=== PATIENT | female | born 1945 | race Caucasian/White ===

== ENCOUNTER → 2016-03-03 | Outpatient (CLI) | payer MEDICARE ==
[2015-08-01 13:58] VITALS: BP 171/98
[~2016-03-03] MED LIST: AMLO5TAB2 PO; BUPR150T15 PO; CARB200T PO; ERYT1OIN6 EACHEYE; ESTR0.3T PO; FLUT16SP2 NS; LEVO50TA PO; OFLO5DRO OS; PARO10TA24 PO
--- NOTE | 2016-03-04 17:27 | EEG ---
DATE OF SERVICE: 03/03/2016 EEG NUMBER: [id number], performed on 03/03/2016. OBJECTIVE: The patient is a 70-year-old female with history of conversion disorder and possible seizures. DESCRIPTION: This is a digital study. Electrodes are placed according to the international 10-20 system. Bipolar and referential montages are available. Activation procedures typically include hyperventilation and intermittent photic stimulation. INTERPRETATION: The waking background consists of 9-10 Hz, 50-100 microvolt activity, symmetrically distributed over parietooccipital regions, and reactive to eye opening. Hyperventilation and intermittent photic stimulation are noncontributory. Stage 2 sleep is achieved with normal electroencephalogram patterns. IMPRESSION: This electroencephalogram with the patient awake and asleep is within normal limits. There is no focal, paroxysmal, or epileptiform activity. Thank you for letting us help with the patient's care. MORRIS MCCALLUM MD DR: ROSLYN/esthela JOB#: [id number] / [id number] DEEPA Flores MD
== END | disposition home or self-care (01) ==
LOC: RT 07:52
PROVIDERS: ATTEND Psychiatry & Neurology Neurology with Special Qualifications in Child Neurology
DX: F44.4 Conversion disorder with motor symptom or deficit (principal); R56.9 Unspecified convulsions
CPT/HCPCS: 95816

== ENCOUNTER 2016-12-07 19:06 | Emergency (ER) | payer OTHER, MEDICARE ==
[~2016-12-07] VITALS: Ht 142.2 cm; Wt 46.7 kg
[~2016-12-07 19:06] MED LIST changes: -PARO10TA24 PO; +PARO10TA57 PO
[2016-12-07 19:23] VITALS: BP 169/77
[2016-12-07] MEDS ORDERED: ACETAMINOPHEN/CODEINE 300/30MG TABLET. PO ONE (19:30)
--- NOTE | 2016-12-07 19:45 | PHYS DOC ---
Past Medical History Past Medical History: Anxiety, Bipolar, GERD, High Cholesterol, Hypertension, Hypothyroid, Other Additional Past Medical Histor: Osteoporosis, Concussion x 2 from falls in 2014 ,Bilat Ear Nerve Damage. 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 Alcohol Use: Sober Drug Use: None Adult General Chief Complaint Chief Complaint: MECHANICAL FALL [facility] HPI Patient is a 71 year old female who presents with facial contusion status post falling. Patient states he works at [employer], she was walking in with food in her hands when she tripped over a kids feet and fell flat on her face. Patient denies any loss of consciousness. Denies any use of aspirin or anticoagulants. She is very heard of hearing. Review of Systems Review of Systems Constitutional: Denies fever or chills [] Eyes: Denies change in visual acuity, redness, or eye pain [] HENT: facial contusion Respiratory: Denies cough or shortness of breath [] Cardiovascular: No additional information not addressed in HPI [] GI: Denies abdominal pain, nausea, vomiting, bloody stools or diarrhea [] : Denies dysuria or hematuria [] Musculoskeletal: Denies back pain or joint pain [] Integument: Denies rash or skin lesions [] Neurologic: Denies headache, focal weakness or sensory changes [] Endocrine: Denies polyuria or polydipsia [] Current Medications Current Medications Current Medications Medications (Trade) Dose Ordered Sig/Castro Start Time Stop Time Status Last Admin Dose Admin Acetaminophen/ Codeine Phosphate (Tylenol #3) 1 tab 1X ONCE 12/07/16 19:30 12/07/16 19:31 DC 12/07/16 20:21 1 TAB Allergies Allergies Allergies Coded Allergies Type Severity Reaction Last Updated Verified No Known Drug Allergies 06/29/13 No Physical Exam Physical Exam Constitutional: Well developed, well nourished, no acute distress, non-toxic appearance. [] HENT: Normocephalic, bilateral external ears normal, oropharynx moist, no oral exudates, mild swelling noted on the nasal bridge with deformity to the nose. There is a superficial laceration over the nasal bridge approximately 1 cm long. No nosebleeding. Eyes: PERRLA, EOMI, conjunctiva normal, no discharge. [] Neck: Normal range of motion, no tenderness, supple, no stridor. [] Cardiovascular:Heart rate regular rhythm, no murmur [] Lungs & Thorax: Bilateral breath sounds clear to auscultation [] Abdomen: Bowel sounds normal, soft, no tenderness, no masses, no pulsatile masses. [] Skin: Warm, dry, no erythema, no rash. [] Back: No tenderness, no CVA tenderness. [] Extremities: No tenderness, no cyanosis, no clubbing, ROM intact, no edema. [] Neurologic: Alert and oriented X 3, normal motor function, normal sensory function, no focal deficits noted. [] Psychologic: Affect normal, judgement normal, mood normal. [] Current Patient Data Vital Signs Vital Signs Date Time Temp Pulse Resp B/P (MAP) Pulse Ox O2 Delivery O2 Flow Rate FiO2 12/07/16 20:21 Room Air 12/07/16 19:23 98.1 94 20 98 98.1 EKG EKG [] Radiology/Procedures Radiology/Procedures []PROCEDURE: CT HEAD AND MAXILLOFACIAL WO CT scan of the head without contrast 12/07/2016 Clinical History: Fall with headache. Nasal laceration. Technique: Unenhanced, contiguous, 5 mm axial sections were obtained through the head. One or more of the following individualized dose reduction techniques were utilized for this study: 1. Automated exposure control. 2. Adjustment of the mA and/or kV according to patient size. 3. Use of iterative reconstruction technique. Findings: Comparison study is dated 07/19/2013. There is generalized parenchymal atrophy. Areas of decreased attenuation are seen within the periventricular and subcortical white matter of both cerebral hemispheres consistent with areas of small vessel ischemic disease. No acute parenchymal abnormality is seen. No extra-axial fluid collection is noted. No skull fracture is seen. Impression: No acute intracranial abnormality is seen. CT scan of the facial bones without contrast 12/07/2016. Uncal history: Fall with nasal laceration. TECHNIQUE: Unenhanced, contiguous, 0.625 mm axial sections were obtained through the facial bones and orbits. 3 mm reconstructed sagittal and axial and coronal images were obtained. FINDINGS: A comminuted minimally depressed fracture is seen involving the nasal bone. No additional facial bone fracture is seen. Both orbits are intact the paranasal sinuses are essentially clear. No air-fluid level is seen. IMPRESSION: Comminuted minimally depressed fracture of the nasal bone. No additional facial bone fracture is seen. Electronically signed by: Mj Morton MD (12/07/2016 8:16 PM) [facility] DICTATED and SIGNED BY: MJ MORTON MD DATE: 12/07/162011 CC: DEEPA BARTLETT MD; EMMA HERRERA APRN; NON,STAFF ~ Course & Med Decision Making Course & Med Decision Making Pertinent Labs and Imaging studies reviewed. (See chart for details) Patient is in the ED with facial contusion after falling face forward. She also had a superficial laceration over the nasal bridge that was closed with Dermabond. Tetanus is up-to-date. CT of the head was negative for any acute findings, CT of maxillary facial was noted for a comminuted mildly depressed fracture of the nasal bone. Patient was given instructions to follow-up with [facility] plastic surgeon. She was put on a give Augmentin considering this is an open fracture. She was instructed to keep the area clean and dry. Dragon Disclaimer Dragon Disclaimer This electronic medical record was generated, in whole or in part, using a voice recognition dictation system. Departure Departure Impression: Primary Impression: Fall from standing Additional Impressions: Facial contusion Laceration of nose Open fracture nasal bone Disposition: 01 HOME, SELF-CARE Condition: STABLE Referrals: DEEPA BARTLETT MD (PCP) Follow up with [facility] plastic surgery. Call them tomorrow for an appointment with Dr. Del Castillo or [facility]. The phone number is . Patient Instructions: Contusion, [id number], Fall Prevention and Home Safety , Nasal Fracture, [id number] Additional Instructions: You were seen for facial contusion after falling. Your CT of the head was negative for any acute findings, your CT of the face was noted for nasal bone fracture. We put you on antibiotics, ensure you complete them. Follow-up with a plastic surgeon at [facility] plastic surgery or any other plastic surgeon you choose to. Scripts Hydrocodone/Apap 5-325 (NORCO 5-325 TABLET) 1 Each Tablet 1 TAB PO Q4-6HRS, #15 TAB Prov: EMMA HERRERA APRN 12/07/16 Amoxicillin/Potassium Clav (AUGMENTIN 875-125 TABLET) 1 Each Tablet 1 TAB PO BID, #20 TAB Prov: MUTUNGA,EMMA GATE WATCHMAN 12/07/16 Problem Qualifiers Primary Impression: Fall from standing Encounter type: initial encounter Qualified Codes: W19.XXXA - Unspecified fall, initial encounter Additional Impressions: Facial contusion Encounter type: initial encounter Qualified Codes: S00.83XA - Contusion of other part of head, initial encounter Laceration of nose Encounter type: initial encounter Qualified Codes: S01.21XA - Laceration without foreign body of nose, initial encounter Open fracture nasal bone Encounter type: initial encounter Qualified Codes: S02.2XXB - Fracture of nasal bones, initial encounter for open fracture EMMA HERRERA GATE WATCHMAN Dec 07, 2016 19:45
--- NOTE | 2016-12-07 20:20 | RAD ---
CT scan of the head without contrast 12/07/2016 Clinical History: Fall with headache. Nasal laceration. Technique: Unenhanced, contiguous, 5 mm axial sections were obtained through the head. One or more of the following individualized dose reduction techniques were utilized for this study: 1. Automated exposure control. 2. Adjustment of the mA and/or kV according to patient size. 3. Use of iterative reconstruction technique. Findings: Comparison study is dated 07/19/2013. There is generalized parenchymal atrophy. Areas of decreased attenuation are seen within the periventricular and subcortical white matter of both cerebral hemispheres consistent with areas of small vessel ischemic disease. No acute parenchymal abnormality is seen. No extra-axial fluid collection is noted. No skull fracture is seen. Impression: No acute intracranial abnormality is seen. CT scan of the facial bones without contrast 12/07/2016. Uncal history: Fall with nasal laceration. TECHNIQUE: Unenhanced, contiguous, 0.625 mm axial sections were obtained through the facial bones and orbits. 3 mm reconstructed sagittal and axial and coronal images were obtained. FINDINGS: A comminuted minimally depressed fracture is seen involving the nasal bone. No additional facial bone fracture is seen. Both orbits are intact the paranasal sinuses are essentially clear. No air-fluid level is seen. IMPRESSION: Comminuted minimally depressed fracture of the nasal bone. No additional facial bone fracture is seen. Electronically signed by: Mj Morton MD (12/07/2016 8:16 PM) [facility]
[2016-12-07] MEDS ORDERED: HYDR-971 PO (20:28)
[2016-12-07] MEDS ORDERED: AMOX1TAB61 PO (20:28)
== END 2016-12-07 20:38 | disposition home or self-care (01) ==
LOC: ER 19:06
DX: S02.2XXB Fracture of nasal bones, initial encounter for open fracture (principal); S01.21XA Laceration without foreign body of nose, initial encounter; S00.83XA Contusion of other part of head, initial encounter; F41.9 Anxiety disorder, unspecified; F31.9 Bipolar disorder, unspecified; K21.9 Gastro-esophageal reflux disease without esophagitis; E78.00 Pure hypercholesterolemia, unspecified; I10 Essential (primary) hypertension; E03.9 Hypothyroidism, unspecified; M81.0 Age-related osteoporosis without current pathological fracture; Z98.42 Cataract extraction status, left eye; Z98.41 Cataract extraction status, right eye; W01.0XXA Fall on same level from slipping, tripping and stumbling without subsequent striking against object, initial encounter; Y93.01 Activity, walking, marching and hiking; Y92.89 Other specified places as the place of occurrence of the external cause; Y99.8 Other external cause status
CPT/HCPCS: 12011; 70450; 70486; 99284-25

== ENCOUNTER 2018-03-05 14:17 | Emergency (ER) | payer MEDICARE ==
[~2018-03-05] VITALS: Ht 139.7 cm; Wt 46.7 kg
[~2018-03-05 14:17] MED LIST changes: -AMLO5TAB2 PO; +AMLO5TAB7 PO; +AMOX1TAB61 PO; +HYDR-3164 PO
[2018-03-05 14:30] VITALS: BP 166/83
--- NOTE | 2018-03-05 14:45 | PHYS DOC ---
Past Medical History Past Medical History: Anxiety, Bipolar, GERD, High Cholesterol, Hypertension, Hypothyroid, Other Additional Past Medical Histor: Osteoporosis, Concussion x 2 from falls in 2014 ,Bilat Ear Nerve Damage. 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 Alcohol Use: Sober Drug Use: None Adult General Chief Complaint Chief Complaint: SKIN RASH/ABSCESS HPI HPI 72-year-old female presents to ER complaining she has area on her back which is tender to touch and her reported she has raised area on her back which appeared red. Patient reports she has had multiple skin cancers in the past which have been surgically removed so came to the ER for evaluation. His fever or chills. Patient reports she has recently been treated for sinus infection and is on Augmentin currently-the symptoms have improved however she does continue to have generalized fatigue. Review of Systems Review of Systems Constitutional: Denies fever or chills [] Respiratory: Denies cough or shortness of breath [] Cardiovascular: No additional information not addressed in HPI [] GI: Denies abdominal pain, nausea, vomiting, bloody stools or diarrhea [] Musculoskeletal: Denies joint pain. Reports pain lt upper back at sore site Integument: Reports tender raised sore on lt upper back Neurologic: Denies headache, focal weakness or sensory changes [] All other systems were reviewed and found to be within normal limits, except as documented in this note. Allergies Allergies Allergies Coded Allergies Type Severity Reaction Last Updated Verified No Known Drug Allergies 06/29/13 No Physical Exam Physical Exam Constitutional: Well developed, well nourished, no acute distress, non-toxic appearance. [] HENT: Normocephalic, atraumatic, bilateral external ears normal, oropharynx moist, no oral exudates, nose normal. [] Eyes: PERRLA, EOMI, conjunctiva normal, no discharge. [] Neck: Normal range of motion, no tenderness, supple, no stridor. [] Cardiovascular:Heart rate regular rhythm, no murmur [] Lungs & Thorax: Bilateral breath sounds clear to auscultation [] Abdomen: Bowel sounds normal, soft, no tenderness, no masses, no pulsatile masses. [] Skin: Warm, dry, no erythema, no rash. [] Back: No tenderness, no CVA tenderness. [] Extremities: No tenderness, no cyanosis, no clubbing, ROM intact, no edema. [] Neurologic: Alert and oriented X 3, normal motor function, normal sensory function, no focal deficits noted. [] Psychologic: Affect normal, judgement normal, mood normal. [] EKG EKG [] Radiology/Procedures Radiology/Procedures [] Course & Med Decision Making Course & Med Decision Making She was evaluated in the ER for complaints of tender raised sore on left upper back. She had mole on lt upper back on palpation was nontender-no erythema. Patient was afebrile and nontoxic in appearance. Patient is scheduled on with Dr. Quiles for removal of lt lower leg melanoma. With patient having no infectious appearance or abscess no treatment done while in the ER. Patient is going to call Dr. Quiles's office and have follow-up with his office prior to her surgery date. Patient's during exam states mole appears less red than it had at home. Patient was provided with a Band-Aid and discussed covering the area to avoid irritation. Education provided and signs and symptoms to return to ER for an discharge instructions were discussed. Dragon Disclaimer Dragon Disclaimer This electronic medical record was generated, in whole or in part, using a voice recognition dictation system. Departure Departure Impression: Primary Impression: Skin mole Disposition: 01 HOME, SELF-CARE Condition: STABLE Referrals: DEEPA BARTLETT MD (PCP) Patient Instructions: Mole-Brief Additional Instructions: Call Dr. Quiles's office and discuss your concerns- it appears to be a mole on your back with no signs of infection or an abscess. Keep area covered with bandaid to avoid irritation. JACI POON APRN Mar 05, 2018 14:45
== END 2018-03-05 15:10 | disposition home or self-care (01) ==
LOC: ER 14:17
DX: D22.9 Melanocytic nevi, unspecified (principal); R53.83 Other fatigue; K21.9 Gastro-esophageal reflux disease without esophagitis; F31.9 Bipolar disorder, unspecified; E78.00 Pure hypercholesterolemia, unspecified; E03.9 Hypothyroidism, unspecified; Z85.828 Personal history of other malignant neoplasm of skin
CPT/HCPCS: 99282

== ENCOUNTER → 2019-03-28 | Outpatient (CLI) | payer MEDICARE ==
[~2019-03-28] MED LIST changes: +AMLO5TAB10 PO; -AMLO5TAB7 PO
--- NOTE | 2019-03-28 14:05 | KCIC ---
MRI Lumbar Spine without contrast History: Lumbar radiculopathy, low back pain, bilateral hip and thigh pain since December 2018 Technique: Multiplanar, multi sequential noncontrast MR imaging was performed of the lumbar spine. Comparison: None Findings: Other than small inferior Schmorl's nodes of L4, L2, and L1, vertebral body stature is overall maintained. AP alignment is mostly maintained, negligible anterior spondylolisthesis at L4-5. There is [id number] degenerative disc disease at L2-3 and minimally at L1-2, L3-4, and L4-5. There is trace L2-3 endplate edema likely reactive/degenerative in etiology. Conus terminates at the mid to inferior aspect of L2. L1-L2: Neural foramina and spinal canal are adequate. L2-L3: There is minimal disc osteophyte complex and bulge, mild indentation upon the ventral thecal sac greater in the far left lateral recess. Spinal canal and neural foramina are overall adequate. L3-L4: There is negligible disc osteophyte complex. There is mild prominence of posterior epidural fat centrally. Spinal canal is overall adequate. Neural foramina are not significantly narrowed. L4-L5: There is minimal buckling of the ligamentum flavum. There is left posterolateral annular tear. There is negligible bulge. There is very minimal narrowing of the inferior left neural foramen by minimal disc osteophyte complex, right neural foramen overall adequate. L5-S1: Spinal canal is adequate. There is minimal disc osteophyte complex in the inferior left neural foramen contributing to mild narrowing of the left neural foramen. Right neural foramen is adequate. Impression: 1. There is no significant lumbar spinal stenosis. There is no significant lumbar neural foramina compromise, minimal narrowing on the left at L4-5 and L5-S1. There is [id number] L2-3 degenerative disc disease, minimally at other levels. There is negligible anterior spondylolisthesis at L4-5. Electronically signed by: Dago Ang MD (03/28/2019 2:03 PM) [id number]
== END | disposition home or self-care (01) ==
LOC: KCIC MRI 12:44
PROVIDERS: ATTEND Internal Medicine Rheumatology
DX: M43.16 Spondylolisthesis, lumbar region (principal); M51.16 Intervertebral disc disorders with radiculopathy, lumbar region; M47.26 Other spondylosis with radiculopathy, lumbar region; M25.78 Osteophyte, vertebrae; M48.07 Spinal stenosis, lumbosacral region
CPT/HCPCS: 72148

== ENCOUNTER → 2020-05-19 | Outpatient (CLI) | payer MEDICARE ==
[~2020-05-19] MED LIST changes: +ALPR0.254 PO; +AMLO-186 PO; -AMLO5TAB10 PO; +ATOR10TA60 PO; +BUPIVACAINE MPF 0.25% 10 ML VIAL. ONE; +CALC500T54 PO; +DULO60CA6 PO; +FOLI0.8C PO; +LACT1CAP6 PO; +LEVO100T5 PO; +METH2.5T PO; +MULT-245 PO; +PANT20TA2 PO; +PRED2.5T PO; +QUET100T4 PO; +TIOT18CA IH; +TRAM100T2 PO; +methylPREDNISolone ACETATE 40 MG/ML VIAL. ONE
--- NOTE | 2020-05-19 15:34 | PDOC1 ---
INITIAL PAIN CONSULT DATE OF SERVICE: DOS: DATE: 05/19/20 TIME: 15:25 CHIEF COMPLAINT: Chief Complaint: Neck and left upper extremity pain HISTORY OF PRESENT ILLNESS: 34-year-old female presents history of pain base the neck and left shoulder left upper extremity for about 3 weeks now increasing after she fell out of her bed onto her left shoulder and arm. Patient reports that prior to that she did have some pain in the base of the neck and shoulder was not nearly as bad now is becoming more constant described as sharp and stabbing shooting in the left upper extremity also in the posterior deltoid posterior triceps and into the forearm with some loss of strength as well secondary to the pain patient reports no significant decrease in range of motion of the left upper extremity no pain on the right side. Patient has good rotation of the neck as well without significant pain reported with extension flexion right or left lateral rotation. Patient reports the pain does awaken her up at night but not every night from sleep.. Patient is doing some stretching and strengthening on her own has had no formal physical therapy or other treatments at this time. Patient is taking tramadol as well as Tylenol prednisone has been discontinued about 3 weeks ago. Patient is using some cortisone cream to the left shoulder as well as some [id number] lidocaine patches which she does report help about 10 to 20%. Patient rates her disability rating 0-10 10 being the worst is a 10 with recreation social activity occupational activities 10 with sleeping activities and life support activities as well as family home responsibilities. Patient not had any recent diagnostic studies as well. PAST MEDICAL HISTORY: PMH: Hearing loss, COPD, hypertension, hyperlipidemia, gastroesophageal reflux, arthritis, skin cancers PREVIOUS SURGERIES: Past Surgical Hx: Abdominal hysterectomy, thyroidectomy, bilateral cataract extractions, left neck tumor extraction and lymph node removal and salivary gland extraction. CURRENT MEDICATIONS: Current Meds: Active Scripts Medications Dose Route/Sig Max Daily Dose Days Date Category Tramadol Hcl 100 Mg Tbmp.24hr 2 Tab PO PRN DAILY PRN MDD 1 Tablet(s) 30 05/19/20 Reported Calcium (Calcium Carbonate) 500 Mg Tab.chew 500 Mg PO DAILY 05/19/20 Reported Multi Vitamin Daily (Multivitamin) 1 Each Tablet 1 Tab PO DAILY 30 05/19/20 Reported Probiotic (Lactobacillus Acidophilus) 1 Each Capsule 1 Each PO DAILY 05/19/20 Reported Methotrexate (Methotrexate Sodium) 2.5 Mg Tablet 2.5 Mg PO DAILY 05/19/20 Reported Folic Acid 0.8 Mg Capsule 1 Cap PO BID 30 05/19/20 Reported Cymbalta (Duloxetine Hcl) 60 Mg Capsule.dr 1 Cap PO DAILY 05/19/20 Reported Prednisone 2.5 Mg Tablet 5 Mg PO DAILY 05/19/20 Reported Spiriva (Tiotropium [place]) 18 Mcg Cap.w.dev 1 Cap IH DAILY 05/19/20 Reported Atorvastatin Calcium 10 Mg Tablet 1 Tab PO DAILY 05/19/20 Reported Seroquel (Quetiapine Fumarate) 100 Mg Tablet 1 Tab PO QHS 05/19/20 Reported Alprazolam 0.25 Mg Tablet 1 Tab PO DAILY 05/19/20 Reported Protonix (Pantoprazole Sodium) 20 Mg Tablet.dr 1 Tab PO DAILY 05/19/20 Reported Levothyroxine Sodium 100 Mcg Tablet 1 Tab PO DAILY 05/19/20 Reported Flonase (Fluticasone Propionate) 16 Gm Bernard.susp 16 Gm NS 07/14/13 Reported Amlodipine Besylate 5 Mg Tablet 5 Mg PO DAILY 07/14/13 Reported Tegretol (Carbamazepine) 200 Mg Tablet 200 Mg PO TID 07/14/13 Reported ALLERGIES; Allergies: Coded Allergies: No Known Drug Allergies (Unverified , 06/29/13) FAMILY HISTORY: Family Hx: Lupus in the patient's sister, rheumatoid arthritis in the patient's sister, rheumatoid arthritis in patient's father SOCIAL HISTORY: Social Hx: Patient does not trevor alcohol does not smoke not use any illegal illicit or recreational drugs is lives with her spouse is locally in [facility] and reports she is still working at a [employer]. REVIEW OF SYSTEMS: ROS: Positive for those items mentioned in history of present illness, all systems ar e reviewed, otherwise negative ,and are complete full and well-documented on patient's chart. PHYSICAL EXAM: VS: Blood pressure is 143/83 pulse 84 respirations 18 temperature 98.2 F height is 4 foot 8 inches weight is 107 pounds PE: PHYSICAL EXAMINATION: GENERAL: The patient is awake, alert, oriented, appropriate, very pleasant demeanor, accompanied by her . HEENT: Shows normocephalic, atraumatic. Extraocular movements are intact and symmetrical. Oral cavity: Mucous membranes moist and pink. Dentition is intact. NECK: Shows anterior throat supple without palpable lymphadenopathy noted. Swallow reflex symmetrical. CHEST: Shows normal on inspection. Breath sounds are clear bilaterally, no ra les rhonchi wheezes auscultated. HEART: Shows S1, S2 clear. No murmurs auscultated. ABDOMEN: Soft, nontender, nondistended, obese. No palpable organomegaly is noted. No rebound or guarding demonstrated. BACK: Shows spine grossly in the midline. Normal-appearing cervical lordotic curvature. Cervical paraspinous muscles show symmetrical on inspection on palpation some moderate tenderness diffusely more on the left than the right in the middle and lower distribution cervical paraspinous musculature. Patient has significant tenderness with palpation in the trapezius musculature however on the left and right with very firm ropelike musculature consistent with trigger point areas of musculature bilaterally but much more prominent on the left side without specific radiation but very firm very tender with palpation this is true into the thoracic paraspinous muscles are in the upper distribution as well as the rhomboid musculature in the supra and infrascapular distributions as well. There is slightly increased thoracic kyphosis, some minor flattening of the lumbar lordotic curvature. EXTREMITIES: Upper extremities show deep tendon reflexes 2+ in the biceps and triceps tendons. Motor exam is 5 on a scale of 5 with right rail car repair carman strength, biceps and triceps flexion and 4/5 on the left. Peripheral pulses are 2+ radial. No peripheral edema is noted bilaterally. Upper extremities are warm a nd dry to touch, equal in color and appearance. SKIN: Shows warm and dry, good turgor. No edema. No sores, rashes or bruising throughout. IMPRESSION: Impression: 74-year-old female with approximate 3-week history pain base the neck left shoulder upper extremity after fall. Hypertension COPD Arthritis Hyperlipidemia History of skin cancers Plan: Options were discussed with the patient and patient's who completed her visit today. We discussed medication management as physical therapies as well as interventional techniques. Patient went to pursue interventional techniques. Patient has findings consistent with myofascial pain syndrome with trigger points and we will proceed with trigger point injections of the identified musculature in the left cervical paraspinous posterior left trapezius musculature and left thoracic paraspinous musculature. Risks discussed including but not limited to bleeding infection possibility of intravascular injection sequelae spread to local anesthetic numbness pneumothorax side effects steroid medication portals regarding pain control. Patient understands wished to proceed. Patient return to the clinic in approximate 2 weeks for follow-up, was counseled as return appointment, activity level, and side effects to be aware of. Under sterile prep and drape patient in sitting position, trigger point muscles were identified in the bilateral cervical paraspinous muscle bilateral trapezius musculature and left thoracic paraspinous musculature. Each trigger point was identified and injected using a 25-gauge needle after negative aspiration 1 cc each of a solution containing 0.25% bupivacaine and a total of 40 mg Depo-Medrol and 10 cc was injected to each injection site for a total of 10 cc 0.25% Vivacaine and total of 40 mg Depo-Medrol. Patient tolerated procedure well had no complications. ROLAND SPARKS MD May 19, 2020 15:34
--- NOTE | 2020-05-19 15:35 | PDOC4 ---
PROCEDURE Procedure Patient was consented for trigger point injections. Risk were discussed inc luding but not limited to bleeding infection possibility of intravascular injection sequelae spread of local anesthetic numbness pneumothorax side effects of steroid medications and poor results regarding pain control. Patient understands wished to proceed. Under sterile prep and drape patient in sitting position, trigger point muscles were identified in the bilateral cervical paraspinous muscle bilateral trapezius musculature and left thoracic paraspinous musculature. Each trigger point was identified and injected using a 25-gauge needle after negative aspiration 1 cc each of a solution containing 0.25% bupivacaine and a total of 40 mg Depo-Medrol and 10 cc was injected to each injection site for a total of 10 cc 0.25% Vivacaine and total of 40 mg Depo-Medrol. Patient tolerated procedure well had no complications. ROLAND SPARKS MD May 19, 2020 15:35
== END | disposition home or self-care (01) ==
LOC: PNCL 13:51
PROVIDERS: ATTEND Anesthesiology
DX: M54.2 Cervicalgia (principal); M79.602 Pain in left arm; J44.9 Chronic obstructive pulmonary disease, unspecified; I10 Essential (primary) hypertension; E78.5 Hyperlipidemia, unspecified; K21.9 Gastro-esophageal reflux disease without esophagitis; M19.90 Unspecified osteoarthritis, unspecified site; Z85.828 Personal history of other malignant neoplasm of skin; Z90.710 Acquired absence of both cervix and uterus; Z98.890 Other specified postprocedural states; Z87.891 Personal history of nicotine dependence; Z88.8 Allergy status to other drugs, medicaments and biological substances; Z79.899 Other long term (current) drug therapy
CPT/HCPCS: 20553; J1030; J3490

== ENCOUNTER → 2020-05-28 | Outpatient (CLI) | payer MEDICARE ==
[~2020-05-28] MED LIST changes: -BUPIVACAINE MPF 0.25% 10 ML VIAL. ONE; -methylPREDNISolone ACETATE 40 MG/ML VIAL. ONE
--- NOTE | 2020-05-28 16:04 | KCIC ---
Examination: MRI of the left shoulder without contrast HISTORY: History of left shoulder pain COMPARISON: None available TECHNIQUE: Multiplanar, multisequence MR imaging of the left shoulder without contrast. FINDINGS: The visualized labrum grossly appears unremarkable. Small shoulder joint effusion. The long head of the biceps tendon within the bicipital groove. The attachment of the long head the b iceps tendon to the superior labral anchor grossly appears intact. The attachment of the subscapulari s, supraspinatus, infraspinatus tendon grossly appears intact. There is moderate increased signal ruby ntified in the rotator cuff likely tendinosis. Small amount of fluid identified in subacromial subdel toid bursa. The acromion is type II. The muscle bulk grossly appears unremarkable. Examination limited due to motion artifact. There is obscuration of fat in the rotator interval. Moderate joint space loss identified in the acro mioclavicular joint, glenohumeral joint. IMPRESSION: 1. Small amount of fluid identified in subacromial/subdeltoid bursa likely mild bursitis. 2. Moderate rotator cuff tendinosis. 3. Obscuration of fat in the rotator interval likely adhesive capsulitis. Electronically signed by: Kishor Hinton MD (05/28/2020 4:01 PM) [id number]
--- NOTE | 2020-05-28 16:28 | KCIC ---
MRI of the cervical spine without contrast 05/28/2020 CLINICAL HISTORY: Neck pain with left arm and shoulder pain. TECHNIQUE: Unenhanced T1-weighted, T2-weighted and inversion recovery sagittal and gradient echo and T2-weighted axial images of the cervical spine were obtained. FINDINGS: There is mild straightening of the normal cervical lordosis. Degenerative signal changes ar e seen involving all of the disks of the cervical spine. Degenerative signal changes are seen within the marrow surrounding these discs. No area of abnormal signal intensity is seen involving the cervic al spinal cord. At the C2-3 disc space there is a mild generalized disc bulge. Degenerative changes are seen involvin g the uncovertebral and facet joints bilaterally. These findings do not result in significant central spinal canal or neural foraminal stenosis. At the C3-4 disc space there is a mild to moderate generalized disc bulge. Degenerative changes are s een involving the uncovertebral and facet joints bilaterally. These findings do not result in signifi cant central spinal canal or neural foraminal stenosis. At the C4-5 disc space there is a mild generalized disc bulge. Degenerative changes are seen involvin g the uncovertebral and facet joints, left greater than right. These findings do not result in signif icant central spinal canal stenosis. Mild left greater than right neural foraminal stenosis is seen. At the C5-6 disc space there is a mild generalized disc bulge. Degenerative changes are seen involvin g the uncovertebral and facet joints, right greater than left. These findings when combined do not re sult in significant central spinal canal stenosis. Mild to moderate right greater than left neural fo raminal stenosis is seen. At the C6-7 disc space there is a mild to moderate generalized disc bulge. Degenerative changes are s een involving the uncovertebral and facet joints bilaterally. These findings when combined do not res ult in significant central spinal canal stenosis. Mild to moderate bilateral neural foraminal stenosi s is seen. At the C7-T1 disc space there is a minimal generalized disc bulge. Degenerative changes are seen invo lving the facet joints bilaterally. These findings do not result in significant central spinal canal or neural foraminal stenosis. IMPRESSION: Degenerative changes are seen throughout the cervical spine. These findings do not result in significant central spinal canal stenosis. Mild left greater than right neural foraminal stenosis is seen at C4-5. Mild to moderate right greater than left neural foraminal stenosis is seen at C5-6. Mild to moderate bilateral neural foraminal stenosis is seen at C6-7. Electronically signed by: Mj Morton MD (05/28/2020 4:26 PM) [id number]
== END | disposition home or self-care (01) ==
LOC: KCIC MRI 14:17
PROVIDERS: ATTEND Anesthesiology
DX: M47.22 Other spondylosis with radiculopathy, cervical region (principal); M48.02 Spinal stenosis, cervical region; M25.512 Pain in left shoulder; Z79.899 Other long term (current) drug therapy; Z87.891 Personal history of nicotine dependence
CPT/HCPCS: 72141; 73221

== ENCOUNTER → 2020-06-22 | Outpatient (CLI) | payer MEDICARE ==
[~2020-06-22] MED LIST changes: +ACET500T68 PO; +IOHEXOL 180 MG/ML 10 ML VIAL. ONE; +methylPREDNISolone ACETATE 40 MG/ML VIAL. ONE; +methylPREDNISolone ACETATE 80 MG/ML VIAL. ONE
--- NOTE | 2020-06-22 15:47 | PDOC ---
Progress Note - Pain Clinic Date of Service: DOS: DATE: 06/22/20 TIME: 15:42 Diagnosis: Dx: Cervical radiculopathy with cervical degenerative disc disease Myofascial pain History or Present Illness: HPI: 74-year-old female returns to follow-up status post trigger point injections and returns today after MRI scan of both the left shoulder and the cervical spine we reviewed this with she and her spouse today cervical spine showing multiple areas of generalized disc bulges at [id number] with some increased degenerative changes and spinal stenosis or narrowing right greater than left at C5-6 and left greater than right at C6-7. Patient continues to report pain in the neck as well as the left shoulder and upper extremity with MRI of the shoulder showing some small amount of fluid in the subacromial subdeltoid bursa most likely bursitis and moderate rotator cuff tendinosis. Patient reports pain is becoming more noticeable in the left shoulder and upper extremity radiating times into the hand and fingers on the left hand patient reports that sharp in the neck dull and aching in the left arm cannot raise her left arm past about 80degrees taking Tylenol 500 mg x 2 helps but only to moderate staff patient reports her pain is a 9 on scale 10 is worse over the past week 9 on average 9 its least is a 9 today. Patient reports it wakes her from sleep least every 2-3 hours. Physical Exam: VS: Blood pressure is 146/76 pulse 73 respirations are 18 temperature 90.2 F weight is 104 pound PE: PHYSICAL EXAMINATION: GENERAL: The patient is awake, alert, oriented, appropriate, very pleasant demeanor, patient accompanied by her . HEENT: Shows normocephalic, atraumatic. Extraocular movements are intact and symmetrical. Oral cavity: Mucous membranes moist and pink. Dentition is intact. NECK: Shows anterior throat supple without palpable lymphadenopathy noted. Swallow reflex symmetrical. CHEST: Shows normal on inspection. Breath sounds are clear bilaterally, distant but clear. HEART: Shows S1, S2 clear. No murmurs auscultated. ABDOMEN: Soft, nontender, nondistended. No palpable organomegaly is noted. No rebound or guarding demonstrated. BACK: Shows spine grossly in the midline. Normal-appearing cervical lordotic curvature. Cervical paraspinous muscles show symmetrical with inspection on palpation some moderate tenderness diffusely in the inferior aspect the cervical paraspinous muscles are more on the left than the right and into the superior medial trapezius as well. Patient does show good rotation motion cervical spine with a mild tenderness of left lateral rotation past 45 degrees, right side is nontender. Patient shows full extension full forward flexion without significant pain or difficulty. There is slightly increased thoracic kyphosis, some minor flattening of the lumbar lordotic curvature. EXTREMITIES: Upper extremities show deep tendon reflexes 2+ in the biceps and triceps tendons. Motor exam is 5 on a scale of 5 with right construction project administrator strength, biceps and triceps flexion and 4/5 on the left. Peripheral pulses are 2+ radial. No peripheral edema is noted bilaterally. Upper extremities are warm and dry to touch, equal in color and appearance. SKIN: Shows warm and dry, good turgor. No edema. No sores, rashes or bruising throughout. Procedure: Procedure: Options discussed with the patient. Patient chart was reviewed as her current medication regimen updated current review of systems updated today as well. We will proceed with a cervical epidural steroid injection stable fluoroscopic guidance. Risks were discussed including but not limited to: Bleeding, infection, possibility of epidural hematoma and subsequent neurological compromise, dural puncture, headaches, spinal cord and/or nerve damage, side effects of steroid medication, and poor results regarding pain control. Patient understands and wished to proceed. Patient will return to clinic in approximate 2 weeks for follow-up, was counseled as return appointment activity level and side effects to be aware of. Medication Injected: Med Injected: Procedure cervical epidural steroid injection at the C6-7 level, using local anesthetic under sterile prep and drape using C-arm fluoroscopic guidance under local anesthesia medications injected ; 120 mg Depo-Medrol + 5 mL normal saline and 2 mL contrast; condition at discharge is stable patient tolerated procedure well. and had no complications Condition at Discharge: Condition at Discharge: Condition at discharge stable, patient already the procedure well and had no complications. ROLAND SPARKS MD Jun 22, 2020 15:47
--- NOTE | 2020-06-22 15:48 | PDOC4 ---
PROCEDURE Procedure Patient was consented for cervical epidural steroid injection. Risks were d iscussed including but not limited to: Bleeding, infection, possibility of epidural hematoma and subsequent neurological compromise, dural puncture, headaches, spinal cord and/or nerve damage, side effects of steroid medication, and poor results regarding pain control. Patient understands and wished to proceed. Procedure cervical epidural steroid injection at the C6-7 level, using local anesthetic under sterile prep and drape using C-arm fluoroscopic guidance under local anesthesia medications injected ; 120 mg Depo-Medrol + 5 mL normal saline and 2 mL contrast; condition at discharge is stable patient tolerated procedure well. and had no complications ROLAND SPARKS MD Jun 22, 2020 15:48
== END | disposition home or self-care (01) ==
LOC: PNCL 14:20
PROVIDERS: ATTEND Anesthesiology
DX: M50.10 Cervical disc disorder with radiculopathy, unspecified cervical region (principal); M79.18 Myalgia, other site; Z87.891 Personal history of nicotine dependence; Z79.899 Other long term (current) drug therapy
CPT/HCPCS: 62321; J1030; J1040; Q9965

== ENCOUNTER → 2020-07-07 | Outpatient (CLI) | payer MEDICARE ==
[~2020-07-07] MED LIST changes: +BUPIVACAINE MPF 0.25% 10 ML VIAL. ONE; -methylPREDNISolone ACETATE 40 MG/ML VIAL. ONE
--- NOTE | 2020-07-07 15:05 | PDOC ---
Progress Note - Pain Clinic Date of Service: DOS: DATE: 07/07/20 TIME: 14:59 Diagnosis: Dx: Myofascial pain Cervical radiculopathy with cervical degenerative disc disease Left shoulder joint pain with osteoarthritis History or Present Illness: HPI: 74-year-old female returns for follow-up status post cervical epidural steroid injection x1. Patient reports about 100% improvement in the neck and shoulder pain that she was having bilaterally but the left shoulder still has significant pain in the shoulder itself and difficulty with range of motion secondary to pain. Patient reports her neck is doing much better she has been increasing her activity with greater ease and comfort still difficulty though moving the left shoulder and has a history of osteoarthritis of the bilateral shoulders. Patient rates her pain now in the neck and shoulders a 3 on scale 10 is worse over the past week 3 on average 3 days least is a 3 today patient reports the shoulder on the left side only is a constant aching pain worse with weightbearing repetitive motions lifting or trying to reach overhead if she is unable to reach past about 45 degrees laterally and 90 degrees anteriorly. Patient reports no complaints no new motor or sensory deficits. Physical Exam: VS: Blood pressure is 144/87 pulse 83 respiration 16 temperature 98.0 F weight is 108 pounds PE: PHYSICAL EXAMINATION: GENERAL: The patient is awake, alert, oriented, appropriate, very pleasant demeanor HEENT: Shows normocephalic, atraumatic. Extraocular movements are intact and symmetrical. Oral cavity: Mucous membranes moist and pink. Dentition is intact. NECK: Shows anterior throat supple without palpable lymphadenopathy noted. Swallow reflex symmetrical. CHEST: Shows normal on inspection. Breath sounds are clear bilaterally, no rales or rhonchi. HEART: Shows S1, S2 clear. No murmurs auscultated. ABDOMEN: Soft, nontender, nondistended. No palpable organomegaly is noted. BACK: Shows spine grossly in the midline. Normal-appearing cervical lordotic curvature. Cervical paraspinous muscles show symmetrical inspection on palpation some moderate tenderness only diffusely in inferior aspect the cervical paraspinous muscles are without radiation. Patient with full rotation motion cervical spine with lateral as well as extension flexion without significant difficulty. There is slightly increased thoracic kyphosis, some minor flattening of the lumbar lordotic curvature. EXTREMITIES: Upper extremities show deep tendon reflexes 2+ in the biceps and triceps tendons. Motor exam is 5 on a scale of 5 with right rib strength, biceps and triceps flexion and 4/5 on the left. Peripheral pulses are 2+ radial. No peripheral edema is noted bilaterally. Patient's left shoulder shows difficulty with abduction past about 45 degrees patient uses her right arm to help lift the left arm when asked to move it. Patient shows good passive motion however with full range passively and with moderate tenderness past 90 degrees abduction as well as reaching further than this. Upper extremities are warm and dry to touch, equal in color and appearance. Procedure: Procedure: Options were discussed with the patient. Patient's old chart was reviewed as her current medication regimen updated current review of systems updated today as well. We will proceed with a left intra-articular shoulder joint injection today with fluoroscopic guidance. Risks were discussed including but not limited to bleeding infection possibility of intravascular injection sequelae spread local anesthetic numbness side effects steroid medication exposure fluoroscopy and portals regarding pain control. Patient understands wished to proceed. Patient return to the clinic in approximately 2 weeks for follow-up, was counseled as to return appointment activity level, and side effects to be aware of. Medication Injected: Med Injected: Patient supine position under sterile prep and drape using C-arm fluoroscopic guidance patient's left shoulder was visualized and using 25-gauge needle 1% lidocaine was used to topically anesthetized area over the glenohumeral joint on the left. Using a 22-gauge Quincke needle with stylette the joint was entered under direct fluoroscopic visualization without difficulty stylet was removed at this time 2 cc of contrast was injected with good intra-articular spread in the shoulder joint without uptake. At this time 3 cc of 0.25% bupivacaine and 80 mg Depo-Medrol was then injected into the joint. Needle was removed and sterile bandage was applied. Patient tolerated the procedure well and had no complications. Condition at Discharge: Condition at Discharge: Condition at discharge stable, patient already procedure well and had no complications. ROLAND SPARKS MD July 07, 2020 15:05
--- NOTE | 2020-07-07 15:05 | PDOC4 ---
PROCEDURE Procedure Patient was consented for left intra-articular shoulder joint injection. Risks were discussed including not limited to bleeding infection possibility of intravascular injection sequelae spread of local anesthetic and numbness side effects steroid medication exposure to fluoroscopy and poor results regarding pain control. Patient understands wished to proceed. Patient supine position under sterile prep and drape using C-arm fluoroscopic guidance patient's left shoulder was visualized and using 25-gauge needle 1% lidocaine was used to topically anesthetized area over the glenohumeral joint on the left. Using a 22-gauge Quincke needle with stylette the joint was entered under direct fluoroscopic visualization without difficulty stylet was removed at this time 2 cc of contrast was injected with good intra-articular spread in the shoulder joint without uptake. At this time 3 cc of 0.25% bupivacaine and 80 mg Depo-Medrol was then injected into the joint. Needle was removed and sterile bandage was applied. Patient tolerated the procedure well and had no complications. ROLAND SPARKS MD July 07, 2020 15:05
== END | disposition home or self-care (01) ==
LOC: PNCL 14:01
PROVIDERS: ATTEND Anesthesiology
DX: M25.512 Pain in left shoulder (principal); M19.012 Primary osteoarthritis, left shoulder; M50.10 Cervical disc disorder with radiculopathy, unspecified cervical region; M79.18 Myalgia, other site; I10 Essential (primary) hypertension; E78.5 Hyperlipidemia, unspecified; F32.9 Major depressive disorder, single episode, unspecified; F41.9 Anxiety disorder, unspecified; E03.9 Hypothyroidism, unspecified; J44.9 Chronic obstructive pulmonary disease, unspecified; K21.9 Gastro-esophageal reflux disease without esophagitis; M19.90 Unspecified osteoarthritis, unspecified site; Z79.899 Other long term (current) drug therapy; Z98.41 Cataract extraction status, right eye; Z98.42 Cataract extraction status, left eye; Z88.8 Allergy status to other drugs, medicaments and biological substances; Z87.891 Personal history of nicotine dependence; Z85.828 Personal history of other malignant neoplasm of skin
CPT/HCPCS: 20610; 77002; J1040; J3490; Q9965

== ENCOUNTER → 2020-10-21 | Outpatient (CLI) | payer MEDICARE ==
[~2020-10-21] MED LIST changes: +ERYT1OIN3 EACHEYE; -ERYT1OIN6 EACHEYE
--- NOTE | 2020-10-21 15:16 | PDOC ---
Progress Note - Pain Clinic Date of Service: DOS: DATE: 10/21/20 TIME: 15:11 Diagnosis: Dx: Myofascial pain Cervical radiculopathy with cervical degenerative disease Left shoulder joint pain with osteoarthritis Left greater trochanteric bursitis History or Present Illness: HPI: 75-year-old female returns for follow-up status post cervical epidural steroid injection as well as left shoulder joint injection. Patient was doing very well with each of these near 100% improvement with the neck and shoulders patient reports her chief complaint now is a new pain of left hip pain lateral hip on the left side worse with walking standing putting all of her weight on the left side such as climbing a stair or step ambulating in any respect more than just a few minutes patient reports it gives out on her at times and she is not fallen but she is stumbled several times since her last visit patient reports the pain is increasing radiating to the left lateral thigh but not into the back patient reports is a form scale 10 at all times average worst and least over the past week is a 4 on a scale of 10 today patient ports on and off intensity worse with walking standing better with sitting or laying down generally is not awakening from sleep at night prescribed as aching and sharp pain shooting on the left lateral aspect of the thigh. Physical Exam: VS: Blood pressure is 142/72 pulse 79 respirations 18 temp height is 48 inches weight is 106 pounds. PE: PHYSICAL EXAMINATION: GENERAL: The patient is awake, alert, oriented, appropriate, very pleasant in demeanor, patient companied by her HEENT: Shows normocephalic, atraumatic. Extraocular movements are intact and symmetrical. Oral cavity: Mucous membranes moist and pink. NECK: Shows anterior throat supple without palpable lymphadenopathy noted. Swallow reflex symmetrical. CHEST: Shows normal on inspection. Breath sounds are clear bilaterally. HEART: Shows S1, S2 clear. No murmurs auscultated. ABDOMEN: Soft, nontender, nondistended. No palpable organomegaly is noted. No rebound or guarding demonstrated. BACK: Shows spine grossly in the midline. Normal-appearing cervical lordotic curvature. There is slightly increased thoracic kyphosis, some minor flattening of the lumbar lordotic curvature. Lumbar paraspinous muscles show symmetrical on inspection, on palpation shows some moderate tenderness diffusely throughout the upper, middle and lower distribution of the paraspinous muscles without specific trigger points, without radiation of pain. The patient has good rotational motion of the lumbar spine, both laterally as well as extension and flexion without significant difficulty. EXTREMITIES: Lower extremities show deep tendon reflexes 2+ in the patellar and tendo calcaneus tendons. Motor exam is 5 on a scale of 5 with right dorsiflexion, extension, quadriceps and hamstring flexion and 4/5 on the left. Peripheral pulses are 1 posterior tibial. No peripheral edema is noted bilaterally. Lower extremities are warm and dry to touch, equal in color and appearance. Patient's left hip shows significant tenderness with even moderate palpation over left greater trochanter with radiation to the lateral aspect of the thigh to the knee right side is nontender. Patient is hip shows good rota tion of motion however and negative Eliseo's maneuver. SKIN: Shows warm and dry, good turgor. No edema. No sores, rashes or bruising throughout. Procedure: Procedure: Options were discussed with the patient. Patient chart was reviewed as her current medication regimen updated current review of systems updated today as well. We will proceed with a left greater trochanteric bursa injection today with fluoroscopic guidance. Risk were discussed including but not limited to bleeding infection possibility of intravascular ejection sequelae spread local anesthetic numbness side effects steroid medication portals regarding pain control. Patient understands wished to proceed. Patient return to clinic in approximately 4 weeks for follow-up was counseled as return appointment active level and side effects to be aware of. Medication Injected: Med Injected: Under sterile prep and drape patient in supine position using C-arm fluoroscopic guidance patient's left greater trochanter was visualized. Using 25-gauge needle and 1% lidocaine area lateral to the greater trochanter was anesthetized. Using a 25-gauge needle under direct fluoroscopic visualization the greater trochanteric bursa was contacted with negative aspiration noted. 1.5 cc of contrast was then injected with good local spread at the greater trochanteric bursa without washout bilaterally. At this time, a solution containing 3 cc of 0.25% bupivacaine and 80 mg Depo-Medrol was then injected into the greater trochanteric bursa. Patient tolerated the procedure well and had no complications. Condition at Discharge: Condition at Discharge: Condition at discharge stable, patient already procedure well and had no complications. ROLAND SPARKS MD Oct 21, 2020 15:16
--- NOTE | 2020-10-21 15:17 | PDOC4 ---
Procedure Note: ICD 10 Code: ICD 10 Code: M70.62 Procedure Note: Patient was consented for left greater trochanteric bursa injection with fluoroscopic guidance. Risks discussed including but not limited to bleeding infection possibility of intravascular injection sequelae spread local anesthetic numbness side effects of steroid medication portals regarding pain control. Patient understands wished to proceed. Under sterile prep and drape patient in supine position using C-arm fluoroscopic guidance patient's left greater trochanter was visualized. Using 25-gauge need le and 1% lidocaine area lateral to the greater trochanter was anesthetized. Using a 25-gauge needle under direct fluoroscopic visualization the greater trochanteric bursa was contacted with negative aspiration noted. 1.5 cc of contrast was then injected with good local spread at the greater trochanteric bursa without washout bilaterally. At this time, a solution containing 3 cc of 0.25% bupivacaine and 80 mg Depo-Medrol was then injected into the greater trochanteric bursa. Patient tolerated the procedure well and had no complications. ROLAND SPARKS MD Oct 21, 2020 15:17
== END | disposition home or self-care (01) ==
LOC: PNCL 14:18
PROVIDERS: ATTEND Anesthesiology
DX: M70.62 Trochanteric bursitis, left hip (principal); M19.012 Primary osteoarthritis, left shoulder; M51.16 Intervertebral disc disorders with radiculopathy, lumbar region; M79.18 Myalgia, other site; Z87.891 Personal history of nicotine dependence; Z79.899 Other long term (current) drug therapy
CPT/HCPCS: 20610; 77002; J1040; J3490; Q9965

== ENCOUNTER → 2021-01-25 | Outpatient (CLI) | payer MEDICARE ==
[~2021-01-25] MED LIST changes: -DULO60CA6 PO; +DULO60CA7 PO
--- NOTE | 2021-01-25 15:51 | PDOC4 ---
Procedure Note: ICD 10 Code: ICD 10 Code: M70.62 Procedure Note: Patient was consented for left greater trochanteric bursa injection with fluoroscopic guidance. Risk were discussed including but not limited to bleeding infection possibility of intravascular injection sequelae spread local anesthetic numbness side effects steroid medication exposure fluoroscopy and portals regarding pain control. Patient understands wished to proceed. Under sterile prep and drape patient in supine position using C-arm fluoroscopic guidance patient's bilateral left trochanter was visualized. Using 25-gauge needle and 1% lidocaine area lateral to the greater trochanter was anesthetized. Using a 25-gauge needle under direct fluoroscopic visualization the greater trochanteric bursa was contacted with negative aspiration noted. 1.5 cc of contrast was then injected with good local spread at the greater trochanteric bursa without washout. At this time, a solution containing 3 cc of 0.25% bupivacaine and 80 mg Depo-Medrol was then injected into the greater trochanteric bursa. Patient tolerated the procedure well and had no complications. ROLAND SPARKS MD Jan 25, 2021 15:51
--- NOTE | 2021-01-25 15:51 | PDOC ---
Progress Note - Pain Clinic Date of Service: DOS: DATE: 01/25/21 TIME: 15:45 Diagnosis: Dx: Myofascial pain Cervical radiculopathy with cervical degenerative disease Left shoulder joint pain with osteoarthritis Left greater trochanteric bursitis History or Present Illness: HPI: 75-year-old female returns with complaints of pain left greater trochanter and left lateral hip patient reports also some pain in the left shoulder but doing much better as well as significant improvement after cervical epidural steroid injection May of this year patient reports that her left hip is becoming aching once again over the past 2 months or so where she had an injection in September it was doing much better for the meantime but is now returned patient reports a significant pain in the left lateral aspect of the hip with pressure on the hip with walking standing and climbing stairs and trying to extend the lower leg on the left as well as abduction. Patient reports that sharp and stabbing unbearable at times patient has been taking Tylenol 1000 mg twice a day we did discuss that that is high dose and she should cut that down to maximum 1500 mg a day patient reports her pain is a 7 at all times average worst and least on a scale of 10 is 7. Patient reports no bowel or bladder incontinence. Physical Exam: VS: Blood pressure is 140/73 pulse 77 respirations are 18 temperature 98.2 F height is 48 inches weight is 100 pounds. PE: PHYSICAL EXAMINATION: GENERAL: The patient is awake, alert, oriented, appropriate, very pleasant in demeanor, patient companied by her HEENT: Shows normocephalic, atraumatic. Extraocular movements are intact and symmetrical. Patient wearing eyeglasses. Oral cavity: Mucous membranes moist and pink. NECK: Shows anterior throat supple without palpable lymphadenopathy noted. Swallow reflex symmetrical. CHEST: Shows normal on inspection. Breath sounds are clear bilaterally. HEART: Shows S1, S2 clear. No murmurs auscultated. ABDOMEN: Soft, nontender, nondistended. No palpable organomegaly is noted. BACK: Shows spine grossly in the midline. Normal-appearing cervical lordotic curvature. There is slightly increased thoracic kyphosis, some minor flattening of the lumbar lordotic curvature. Lumbar paraspinous muscles show symmetrical on inspection, on palpation shows some moderate tenderness diffusely throughout the upper, middle and lower distribution of the paraspinous muscles without specific trigger points, without radiation of pain. The patient has good rotational motion of the lumbar spine, both laterally as well as extension and flexion without significant difficulty. No tenderness over the spinous processes, sacrum or sacroiliac regions. EXTREMITIES: Lower extremities show deep tendon reflexes 1+ in the patellar and tendo calcaneus tendons. Motor exam is 5 on a scale of 5 with right dorsiflexion, extension, quadriceps and hamstring flexion and 4/5 on the left. Peripheral pulses are 1+ posterior tibial. No peripheral edema is noted bilaterally. Patient's left hip shows significant tenderness over the left greater trochanter with even moderate palpation and radiation to the lateral aspect of the left thigh, right side is nontender. Patient shows good rotation of motion of the hip joint but with abduction so significant pain over the trochanter on the left. Lower extremities are warm and dry to touch, equal in color and appearance. SKIN: Shows warm and dry, good turgor. No edema. No sores, rashes or bruising throughout. Procedure: Procedure: Options were discussed with patient. Patient chart was reviewed as her current medication regimen updated current review of systems updated today as well. We will proceed with a left greater trochanteric bursa injection today with fluoroscopic guidance. Risks were discussed including but not limited to bleeding infection possibility of intravascular injection sequelae spread of local anesthetic numbness side effects steroid medication exposure fluoroscopy and poor results regarding pain control. Patient return to clinic in approximately 4 weeks for follow-up, was counseled as to return appointment A ctivity level, and side effect to be aware of. Medication Injected: Med Injected: Under sterile prep and drape patient in supine position using C-arm fluoroscopic guidance patient's bilateral left trochanter was visualized. Using 25-gauge needle and 1% lidocaine area lateral to the greater trochanter was anesthetized. Using a 25-gauge needle under direct fluoroscopic visualization the greater trochanteric bursa was contacted with negative aspiration noted. 1.5 cc of contrast was then injected with good local spread at the greater trochanteric bursa without washout. At this time, a solution containing 3 cc of 0.25% bupivacaine and 80 mg Depo-Medrol was then injected into the greater trochanteric bursa. Patient tolerated the procedure well and had no complications. Condition at Discharge: Condition at Discharge: Condition at discharge stable, patient tolerated procedure well and had no complications. ROLAND SPARKS MD Jan 25, 2021 15:51
== END | disposition home or self-care (01) ==
LOC: PNCL 14:55
PROVIDERS: ATTEND Anesthesiology
DX: M70.62 Trochanteric bursitis, left hip (principal); M19.012 Primary osteoarthritis, left shoulder; M50.10 Cervical disc disorder with radiculopathy, unspecified cervical region; M79.18 Myalgia, other site; Z87.891 Personal history of nicotine dependence; Z79.899 Other long term (current) drug therapy
CPT/HCPCS: 20610; 77002; J1040; J3490; Q9965

== ENCOUNTER → 2021-03-31 | Outpatient (CLI) | payer MEDICARE ==
[~2021-03-31] MED LIST changes: -BUPIVACAINE MPF 0.25% 10 ML VIAL. ONE
--- NOTE | 2021-03-31 13:19 | PDOC ---
Progress Note - Pain Clinic Date of Service: DOS: DATE: 03/31/21 TIME: 13:14 Diagnosis: Dx: Myofascial pain Cervical radiculopathy with cervical degenerative disc disease Left shoulder joint pain with osteoarthritis Left greater trochanteric bursitis History or Present Illness: HPI: 75-year-old female returns status post left greater trochanteric bursa injection with good initial results with pain returning patient chief complaint today however is neck and left upper extremity pain she reports about 1 week ago she fell out of bed while she was asleep and hit her face and her head on a nightstand near the bed and significant pain in the base the neck and the left upper extremity since that time patient reports radiating into the posterior deltoid posterior forearm as well as the anterior forearm and anterior deltoid and into the hand with some numbness and tingling in the fingers patient reports is an 8 on scale 10 is worst least and average there is an 8 today patient reports aching sharp radiating can be constant he has been taking Tylenol which helps but only moderately she is taking 650 mg twice daily patient reports no loss of motor function but now her left arm is significantly tender with radiating pain into the hand worse with repetitive motions lifting weightbearing reaching over her head with her left arm as well as reaching forward with weightbearing activities. Patient reports has been dropping things with the left hand since the pain is increased and has had some difficulty with fine motor movements especially buttons on clothing. Patient reports no full motor deficits but significant fatigue throughout the left arm and hand. Physical Exam: VS: Blood pressure is 116/60 pulse 73 respirations 18 temperature 98.1 F height is 4 foot 8 inches weight is 106 pounds. PE: PHYSICAL EXAMINATION: GENERAL: The patient is awake, alert, oriented, appropriate, very pleasant in demeanor, patient accompanied by her HEENT: Shows normocephalic, atraumatic. Extraocular movements are intact and symmetrical. Oral cavity: Mucous membranes moist and pink. Dentition is intact. NECK: Shows anterior throat supple without palpable lymphadenopathy noted. Swallow reflex symmetrical. CHEST: Shows normal on inspection. Breath sounds are clear bilaterally, no rales or rhonchi auscultated. HEART: Shows S1, S2 clear. No murmurs auscultated. ABDOMEN: Soft, nontender, nondistended. No palpable organomegaly is noted. BACK: Shows spine grossly in the midline. Normal-appearing cervical lordotic curvature. Cervical paraspinous muscles show symmetrical inspection on palpation some moderate tenderness diffusely but only diffusely without radiation. Patient shows good rotation motion cervical spine both laterally as well as full extension and full forward flexion with some moderate pain with flexion and extension but no radiation. There is slightly increased thoracic kyphosis, some minor flattening of the lumbar lordotic curvature. Lumbar paraspinous muscles show symmetrical on inspection, on palpation shows some moderate tenderness diffusely throughout the upper, middle and lower distribution of the paraspinous muscles, but without specific trigger points, without radiation of pain. The patient has good rotational motion of the lumbar spine, both laterally as well as extension and flexion without significant difficulty. EXTREMITIES: Lower extremities show deep tendon reflexes 2+ in the patellar and tendo calcaneus tendons. Motor exam is 5 on a scale of 5 with right dorsiflexion, extension, quadriceps and hamstring flexion and 4/5 on the left. Peripheral pulses are 1+ posterior tibial. No peripheral edema is noted bilaterally. Lower extremities are warm and dry. Upper extremities show deep tendon reflexes 2+ in the bicep tricep tendons, motor exam is strong with 5 out of 5 freight broker agent strength on the right and 4-5 on the left bicep tricep flexion likewise 4-5 left 5 out of 5 on the right. Peripheral pulses are 2+ radial no peripheral edema is noted. Shoulder shrug strong and intact without loss of strength on resistance bilaterally. SKIN: Shows warm and dry, good turgor. No edema. No sores, rashes or bruising throughout. Procedure: Procedure: Options were discussed with patient. Patient's old chart was reviewed his current medication regimen updated current review of systems updated today as well. We will proceed with a cervical epidural steroid injection today with fluoroscopic guidance. Risks were discussed including but not limited to: Bleeding, infection, possibility of epidural hematoma and subsequent neurological compromise, dural puncture, headaches, spinal cord and/or nerve damage, side effects of steroid medication, and poor results regarding pain control. Patient understands and wished to proceed. Patient will return to the clinic in approximately 2 weeks for follow-up, was counseled as to return appointment, active level, and side effect to be aware of. Medication Injected: Med Injected: Procedure cervical epidural steroid injection at the C6-7 level, using local anesthetic under sterile prep and drape using C-arm fluoroscopic guidance under local anesthesia medications injected ;120 mg Depo-Medrol +5 mL normal saline and 2 mL contrast; condition at discharge is stable patient tolerated procedure well. and had no complications Condition at Discharge: Condition at Discharge: Condition at discharge stable, place tolerated seizure well and had no complications. ROLAND SPARKS MD Mar 31, 2021 13:19
--- NOTE | 2021-03-31 13:20 | PDOC4 ---
Procedure Note: ICD 10 Code: ICD 10 Code: M54.12 M50.30 Procedure Note: Patient was consented for cervical epidural steroid injection with fluoroscopic guidance. Risks were discussed including but not limited to: Bleeding, infection, possibility of epidural hematoma and subsequent neurological compromise, dural puncture, headaches, spinal cord and/or nerve damage, side effects of steroid medication, and poor results regarding pain control. Patient understands and wished to proceed. Procedure cervical epidural steroid injection at the C6-7 level, using local anesthetic under sterile prep and drape using C-arm fluoroscopic guidance under local anesthesia medications injected ;120 mg Depo-Medrol +5 mL normal saline and 2 mL contrast; condition at discharge is stable patient tolerated procedure well. and had no complications ROLAND SPARKS MD Mar 31, 2021 13:20
== END | disposition home or self-care (01) ==
LOC: PNCL 12:00
PROVIDERS: ATTEND Anesthesiology
DX: M50.10 Cervical disc disorder with radiculopathy, unspecified cervical region (principal); M54.12 Radiculopathy, cervical region; M79.18 Myalgia, other site; M19.012 Primary osteoarthritis, left shoulder; M70.62 Trochanteric bursitis, left hip; Z87.891 Personal history of nicotine dependence; Z79.899 Other long term (current) drug therapy; Z98.890 Other specified postprocedural states
CPT/HCPCS: 62321; J1040; Q9965

== ENCOUNTER → 2021-07-12 | Outpatient (CLI) | payer MEDICARE ==
[~2021-07-12] MED LIST changes: -IOHEXOL 180 MG/ML 10 ML VIAL. ONE; +TRAM100T10 PO; -TRAM100T2 PO; -methylPREDNISolone ACETATE 80 MG/ML VIAL. ONE
--- NOTE | 2021-07-12 09:50 | RAD ---
EXAM: Lumbar spine MRI without contrast. HISTORY: Lumbar radiculopathy. TECHNIQUE: Multiplanar, multisequence magnetic resonance imaging of the lumbar spine was performed wi thout contrast. COMPARISON: 03/28/2019 FINDINGS: There is a 1 mm anterolisthesis of L2 on L3. There is multilevel endplate remodeling. There are multiple endplate Schmorl's nodes. There is no suspicious osseous lesion. There is no acute or s ubacute fracture. The conus terminates at L1-L2. There is renal atrophy. At L1-L2, there is a disc bulge and endplate remodeling. There is no stenosis. At L2-L3, there are suspected shallow bilateral foraminal to extra foraminal disc protrusions superim posed on a disc bulge and endplate remodeling. There is mild bilateral foraminal stenosis. At L3-L4, there is a shallow left foraminal to extra foraminal disc protrusion superimposed on a disc bulge. There is mild right facet arthropathy. There is mild bilateral foraminal stenosis. At L4-L5, there is a left lateral recess to extra foraminal disc protrusion superimposed on a disc bu lge and endplate remodeling. There is moderate to severe right and mild left facet arthropathy. There is mild bilateral foraminal stenosis. At L5-S1, there is a left lateral recess to foraminal disc protrusion with 4 mm superior extrusion pabon perimposed on a disc bulge. There is mild right and moderate left foraminal stenosis with abutment th e exiting left L5 nerve root. There is narrowing of the left lateral recess and abutment the traversi ng left S1 nerve root. IMPRESSION: Multilevel degenerative change involving the lumbar spine, described in detail above. Thi s is associated with mild lateral foraminal stenosis at L2-L3, L3-L4 and L4-L5, and mild right and mo derate left foraminal stenosis with abutment the exiting left L5 nerve root and narrowing of the left lateral recess with abutment of the traversing left S1 nerve root at L5-S1. These findings have incr eased particularly at L2-L3 and L5-S1 compared to the prior exam. Electronically signed by: Tianna Hall MD (07/12/2021 9:47 AM) [facility]
== END ==
LOC: MRI 07:45
PROVIDERS: ATTEND Internal Medicine Rheumatology
DX: M47.26 Other spondylosis with radiculopathy, lumbar region (principal); M51.27 Other intervertebral disc displacement, lumbosacral region; M48.07 Spinal stenosis, lumbosacral region; M48.8X6 Other specified spondylopathies, lumbar region; M43.16 Spondylolisthesis, lumbar region
CPT/HCPCS: 72148

== ENCOUNTER → 2021-07-19 | Outpatient (CLI) | payer MEDICARE ==
[~2021-07-19] MED LIST changes: +BUPIVACAINE MPF 0.25% 10 ML VIAL. ONE; +DEXAMETHASONE PRES.FREE 10 MG/ML VIAL. ONE
--- NOTE | 2021-07-19 15:18 | PDOC ---
Progress Note - Pain Clinic Date of Service: DOS: DATE: 07/19/21 TIME: 15:12 Diagnosis: Dx: Myofascial pain Cervical radiculopathy with cervical degenerative disc disease Left shoulder joint pain with osteoarthritis Left greater trochanteric bursitis Lumbar radiculopathy with lumbar degenerative disc disease History or Present Illness: HPI: 35-year-old female returns for follow-up status post cervical epidural steroid injection last seen March 31, 2021 patient reports he did very well with this about 90% improvement in July 16 today however is pain in the left posterior shoulder and base of the neck is very tight and spastic much different than she has had before patient reports pain is right above the shoulder blade on the left side as sharp and tight in quality stabbing feels like a muscle tightening into a knot. Patient is reporting some ointment on it but has not been helping significantly also heating pad which does help to moderate stent patient is trying to stretch the area but without significant reduction in pain she rates the pain as a 9 on scale 10 is worse over the past week 7 on average 5 to [place] is a 7 today. Patient reports no loss of motor function no radiation to the left upper extremity but significant tender pain in the base of the neck on the left side in the superior shoulder. Physical Exam: VS: Blood pressure is 145/71 pulse 77 respirations 18 temperature 98.1 F height is 4 foot 9 inches weight is 106 pounds PE: PHYSICAL EXAMINATION: GENERAL: The patient is awake, alert, oriented, appropriate, very pleasant in demeanor HEENT: Shows normocephalic, atraumatic. Extraocular movements are intact and symmetrical. Oral cavity: Mucous membranes moist and pink. Dentition is intact. NECK: Shows anterior throat supple without palpable lymphadenopathy noted. Swallow reflex symmetrical. CHEST: Shows normal on inspection. Breath sounds are clear bilaterally. HEART: Shows S1, S2 clear. No murmurs auscultated. ABDOMEN: Soft, nontender, nondistended. No palpable organomegaly is noted. BACK: Shows spine grossly in the midline. Normal-appearing cervical lordotic curvature. Cervical paraspinous muscles show symmetrical inspection on palpation some significant tenderness in the inferior aspect of the cervical paraspinous musculature on the left only without atrophy or hypertrophy compared to the right but significant tenderness with very firm ropelike musculature consistent with trigger point areas of musculature on the left side this is also true into the left superior and lateral trapezius very firm ropelike muscular consistent with trigger point areas on the left side but not the right. Patient shows good rotation motion cervical spine both laterally as well as full extension full forward flexion without significant limitation. There is mildly increased thoracic kyphosis, some minor flattening of the lumbar lordotic curvature. Lumbar paraspinous muscles show symmetrical on inspection, on palpation shows some moderate tenderness diffusely throughout the upper, middle and lower distribution of the paraspinous musculature, but without specific trigger points, without radiation of pain. The patient has good rotational motion of the lumbar spine, both laterally as well as extension and flexion without significant difficulty. No tenderness over the spinous processes, sacrum or sacroiliac regions. EXTREMITIES: Lower extremities show deep tendon reflexes 1+ in the patellar and tendo calcaneus tendons. Motor exam is 5 on a scale of 5 with right dorsiflexion, extension, quadriceps and hamstring flexion and 4/5 on the left. Peripheral pulses are 1+ posterior tibial. No peripheral edema is noted bilaterally. Lower extremities are warm and dry to touch, equal in color and appearance. Upper extremities show deep tendon reflexes 2+ biceps and tricep tendons, motor exam is strong with 4-5 nurses director on the left and 5 out of 5 on the right peripheral pulses are 2+ radial bilaterally. SKIN: Shows warm and dry, good turgor. No edema. No sores, rashes or bruising throughout. Procedure: Procedure: Options were discussed with the patient. Patient's old chart was reviewed as her current medication regimen updated current review of systems updated today as well. We will proceed with trigger point injections of the left trapezius as well as left inferior cervical paraspinous musculature. Risk were discussed including but not limited to bleeding infection possibility of intravascular injection sequelae spread local anesthetic numbness side effects of steroid medication and portals regarding pain control. Patient understands and wishes to proceed. Patient will return to clinic in approximately 2 weeks for follow- up, was counseled as to return appointment, activity level, and side effects to be aware of. Medication Injected: Med Injected: Patient sitting position under sterile prep and drape identified trigger point areas of the inferior cervical paraspinous posterior on the left as well as a superior trapezius and lateral trapezius on the left using 25-gauge needle after negative aspiration each injection site total of 60 cc 0.25% ropivacaine and total of 20 mg dexamethasone was injected. Patient tolerated the procedure well and had no complications. Condition at Discharge: Condition at Discharge: Condition at discharge stable, patient tolerated the procedure well and had no complications. ROLAND SPARKS MD July 19, 2021 15:18
--- NOTE | 2021-07-19 15:19 | PDOC4 ---
Procedure Note: ICD 10 Code: ICD 10 Code: M60.89 Procedure Note: Patient was consented for trigger point injections left cervical paraspinous posterior and left trapezius musculature. Risk were discussed including but not limited to bleeding infection possibility of intravascular injection sequelae spread local anesthetic and numbness side effects steroid medication portals regarding pain control. Patient understands wished to proceed. Patient sitting position under sterile prep and drape identified trigger point areas of the inferior cervical paraspinous posterior on the left as well as a superior trapezius and lateral trapezius on the left using 25-gauge needle after negative aspiration each injection site total of 60 cc 0.25% ropivacaine and total of 20 mg dexamethasone was injected. Patient tolerated the procedure well and had no complications. ROLAND SPARKS MD July 19, 2021 15:19
== END | disposition home or self-care (01) ==
LOC: PNCL 14:23
PROVIDERS: ATTEND Anesthesiology
DX: M79.18 Myalgia, other site (principal); M50.10 Cervical disc disorder with radiculopathy, unspecified cervical region; M19.012 Primary osteoarthritis, left shoulder; M51.16 Intervertebral disc disorders with radiculopathy, lumbar region; M70.62 Trochanteric bursitis, left hip; Z87.891 Personal history of nicotine dependence; Z79.899 Other long term (current) drug therapy
CPT/HCPCS: 20552; J1100; J3490